=== PATIENT | male | born 1985 | race Caucasian/White ===

== ENCOUNTER 2020-08-12 22:39 | Emergency (ER) | payer BC, OTHER ==
[~2020-08-12] VITALS: Ht 182.9 cm; Wt 81.6 kg
[2020-08-12 22:40] VITALS: BP 101/64
[2020-08-12] MEDS ORDERED: DICY20TA11 PO (23:35)
[2020-08-12] MEDS ORDERED: LOPE-195 PO (23:35)
== END 2020-08-12 23:55 | disposition home or self-care (01) ==
LOC: ER 22:39
DX: R19.7 Diarrhea, unspecified (principal); Z88.8 Allergy status to other drugs, medicaments and biological substances; Z79.899 Other long term (current) drug therapy